=== PATIENT | female | born 1995 | race Hispanic/Latino ===

== ENCOUNTER → 2020-07-03 | Emergency (ER) | payer MEDICAID ==
[~2020-07-03] MED LIST: CEFTRIAXONE SODIUM 1 GM ONE; ONDANSETRON HCL 4 MG/2 ML VIAL ONE; SODIUM CHLORIDE 0.9% 1000ML 1,000 ML IV ONE
[2020-07-03 19:42] LABS: APPEARANCE,URINE CLOUDY (CLEAR); BILIRUBIN,URINE NEGATIVE (NEGATIVE); COLOR,URINE YELLOW (YELLOW); GLUCOSE, URINE (UA) NEGATIVE (NEGATIVE); KETONES,URINE NEGATIVE (NEGATIVE); LEUKOCYTE ESTERASE ,URINE NEGATIVE (NEGATIVE); NITRATE,URINE NEGATIVE (NEGATIVE); OCCULT BLOOD,URINE TRACE-LYSED (NEGATIVE); PH,URINE 8.5 (5.0-8.0); PROTEIN,URINE NEGATIVE (NEGATIVE); UROBILINOGEN,URINE 0.2 mg/dL (0.2-1.0)
[2020-07-03 19:48] LABS: AMORPHOUS SEDIMENT,UR Moderate /LPF (None Seen); BACTERIA,URINE Few /HPF (None Seen); SQUAMOUS EPITHELIAL CELL,UR Few /HPF (0-2); WBC,URINE 0-1 /HPF (0-1)
[2020-07-03 19:52] LABS: HCG,QUAL RESULT POSITIVE (NEGATIVE)
[2020-07-03 20:31] LABS: BASOPHILS % (AUTO) 0.4 % (0.0-5.0); EOSINOPHILS % (AUTO) 0.4 % (0.0-8.0); HEMATOCRIT 37.8 % (36-48); LYMPHOCYTES % (AUTO) 13.9 % (21.0-51.0); MEAN CORPUSCULAR HEMOGLOBIN 30.4 pg (27.0-33.0); MEAN CORPUSCULAR HGB CONC 34.7 g/dL (32.0-36.0); MEAN CORPUSCULAR VOLUME 87.7 fL (79-99); MONOCYTES % (AUTO) 6.3 % (3.0-13.0); NEUTROPHILS % (AUTO) 78.8 % (40.0-77.0); PLATELET COUNT (AUTO) 217 K/uL (130-400); RED BLOOD CELL COUNT(AUTO) 4.31 MIL/uL (4.00-5.50); RED CELL DISTRIBUTION WIDTH 11.9 % (11.0-15.5); WHITE BLOOD COUNT (AUTO) 13.3 K/uL (4.8-10.8)
[2020-07-03 20:41] LABS: CREATININE 0.6 mg/dL (0.5-1.5); POTASSIUM 3.4 mmol/L (3.5-5.1)
[2020-07-03 21:07] LABS: BILIRUBIN,TOTAL 0.3 mg/dL (0.2-1.0); TOTAL PROTEIN, SERUM 7.7 g/dL (6.0-8.3)
== END ==
LOC: EDH 19:21
DX: O23.11 Infections of bladder in pregnancy, first trimester (principal); Z3A.01 Less than 8 weeks gestation of pregnancy
CPT/HCPCS: 36415; 76801; 80053; 81001; 81025; 83690; 84702; 85025; 86900; 86901; 96361; 96365; 96375; 99284; J0696; J2405; J7030

== ENCOUNTER 2021-01-28 20:13 | Observation (INO) | payer MEDICAID ==
[~2021-01-28] VITALS: Ht 162.6 cm; Wt 74.8 kg
[2021-01-28 20:14] VITALS: BP 106/69
[2021-01-28 20:28] VITALS: BP 106/69
[2021-01-28 20:47] LABS: APPEARANCE,URINE Clear (CLEAR); BILIRUBIN,URINE Negative (NEGATIVE); COLOR,URINE Yellow (YELLOW); GLUCOSE, URINE (UA) Negative (NEGATIVE); KETONES,URINE Negative (NEGATIVE); LEUKOCYTE ESTERASE ,URINE Small (NEGATIVE); NITRATE,URINE Negative (NEGATIVE); OCCULT BLOOD,URINE Negative (NEGATIVE); PH,URINE 6.5 (5.0-8.0); PROTEIN,URINE Negative (NEGATIVE)
[2021-01-28 20:58] LABS: BACTERIA,URINE Rare /HPF (None Seen); RBC,URINE None Seen /HPF (0-1); SQUAMOUS EPITHELIAL CELL,UR 0-2 /HPF (0-2); WBC,URINE 0-1 /HPF (0-1)
== END 2021-01-28 21:35 | disposition home or self-care (01) ==
LOC: EDH 20:13 → LDH 20:33
PROVIDERS: ADMIT Specialist; ATTEND Specialist
DX: O62.9 Abnormality of forces of labor, unspecified (principal); O26.893 Other specified pregnancy related conditions, third trimester; R51.9 Headache, unspecified; Z3A.37 37 weeks gestation of pregnancy
CPT/HCPCS: 59025; 81001; G0378; G0379

== ENCOUNTER 2021-02-01 11:21 | Inpatient (IN) | payer MEDICAID ==
[~2021-02-01] VITALS: Ht 162.6 cm; Wt 75.3 kg
[2021-02-01 11:22] VITALS: BP 122/63
[2021-02-01 11:55] LABS: APPEARANCE,URINE CLEAR (CLEAR); BILIRUBIN,URINE NEGATIVE (NEGATIVE); COLOR,URINE YELLOW (YELLOW); GLUCOSE, URINE (UA) NEGATIVE (NEGATIVE); KETONES,URINE NEGATIVE (NEGATIVE); LEUKOCYTE ESTERASE ,URINE TRACE (NEGATIVE); NITRATE,URINE NEGATIVE (NEGATIVE); OCCULT BLOOD,URINE NEGATIVE (NEGATIVE); PH,URINE 7.5 (5.0-8.0); PROTEIN,URINE NEGATIVE (NEGATIVE); UROBILINOGEN,URINE 0.2 mg/dL (0.2-1.0)
[2021-02-01] MEDS ORDERED: NALOXONE HCL 0.4 MG/1 ML ML IV PRN (12:00)
[2021-02-01] MEDS ORDERED: ROPIVACAINE 0.2% 100ML VIAL 100 ML EP SCH (12:00)
[2021-02-01] MEDS ORDERED: LACTATED RINGERS 1000ML 1,000 ML IV PRN (12:00)
[2021-02-01] MEDS ORDERED: LACTATED RINGERS 500 ML 500 ML IV PRN (12:00)
[2021-02-01] MEDS ORDERED: MEPERIDINE-PF 50 MG/ML SYG IVP PRN ×2 (12:00→17:00)
[2021-02-01] MEDS ORDERED: EPHEDRINE SULFATE 50 MG/ML AMPULE IVP PRN (12:00)
[2021-02-01] MEDS ORDERED: AMPICILLIN 2GM+NS 100ML 100 ML IV SCH (12:00)
[2021-02-01] MEDS ORDERED: OXYTOCIN-LR 20 UNITS/1000 ML 1,000 ML IV SCH ×2 (12:00)
[2021-02-01] MEDS ORDERED: PROMETHAZINE HCL 25 MG/ML 1ML AMPULE IM PRN (12:00)
[2021-02-01 12:03] VITALS: BP 114/69
[2021-02-01 12:18] LABS: HEMATOCRIT 31.3 % (36-48); MEAN CORPUSCULAR HEMOGLOBIN 28.2 pg (27.0-33.0); MEAN CORPUSCULAR HGB CONC 32.6 g/dL (32.0-36.0); MEAN CORPUSCULAR VOLUME 86.5 fL (79-99); RED BLOOD CELL COUNT(AUTO) 3.62 MIL/uL (4.00-5.50); WHITE BLOOD COUNT (AUTO) 7.5 K/uL (4.8-10.8)
[2021-02-01 12:52] LABS: BACTERIA,URINE None Seen /HPF (None Seen); RBC,URINE 0-1 /HPF (0-1); SQUAMOUS EPITHELIAL CELL,UR 0-2 /HPF (0-2); WBC,URINE 0-1 /HPF (0-1)
[2021-02-01] MEDS ORDERED: AMPICILLIN 1GM+NS 50ML 50 ML IV SCH (16:00)
[2021-02-01] MEDS ORDERED: METHYLERGONOVINE MALEATE 0.2 MG/1 ML ML ONE (17:27)
[2021-02-01] MEDS ORDERED: LIDOCAINE HCL 1% 20 ML VIAL ONE (17:27)
[2021-02-01] MEDS ORDERED: MISOPROSTOL 200 MCG TABLET ONE (18:30)
[2021-02-01] MEDS ORDERED: MEASLES/MUMPS/RUBELLA VACCINE, LIVE 0.5 ML/VIAL SQ PRN (19:00)
[2021-02-01] MEDS ORDERED: ACETAMINOPHEN WITH CODEINE 1 TAB TAB PO PRN (19:00)
[2021-02-01] MEDS ORDERED: MISOPROSTOL 200 MCG TABLET VG SCH (19:00)
[2021-02-01] MEDS ORDERED: ACETAMINOPHEN 325 MG TAB PO PRN (19:00)
[2021-02-01] MEDS ORDERED: DIPH,PERTUSS(ACELL),TET VAC/PF 0.5 ML VIAL IM PRN (19:00)
[2021-02-01] MEDS ORDERED: METHYLERGONOVINE MALEATE 0.2 MG/1 ML ML IM SCH (19:00)
[2021-02-01] MEDS ORDERED: BENZOCAINE/LANOLIN/ALOE VERA 60 ML AEROSOL TP PRN (19:00)
[2021-02-01] MEDS ORDERED: LANOLIN 30GM OINTMENT TP PRN (19:00)
[2021-02-01] MEDS ORDERED: WITCH HAZEL 1 PAD TP PRN (19:00)
[2021-02-01] MEDS: IBUPROFEN 600 MG TABLET PO PRN (19:53)
[2021-02-01 20:43] VITALS: BP 129/67
[2021-02-01] MEDS: DOCUSATE SODIUM 100 MG CAP PO SCH (21:12)
[2021-02-01 23:20] VITALS: BP 106/63
[2021-02-02 03:00] VITALS: BP 106/58
[2021-02-02 06:41] LABS: HEMATOCRIT 28.3 % (36-48); MEAN CORPUSCULAR HGB CONC 33.2 g/dL (32.0-36.0); MEAN CORPUSCULAR VOLUME 84.2 fL (79-99); RED BLOOD CELL COUNT(AUTO) 3.36 MIL/uL (4.00-5.50); RED CELL DISTRIBUTION WIDTH 12.9 % (11.0-15.5); WHITE BLOOD COUNT (AUTO) 14.9 K/uL (4.8-10.8)
[2021-02-02 07:50] VITALS: BP 95/56
[2021-02-02 08:40] LABS: RAPID PLASMA REAGIN NONREACTIVE (NONREACTIVE)
[2021-02-02] MEDS: DOCUSATE SODIUM 100 MG CAP PO SCH ×2 (08:45→21:39)
[2021-02-02] MEDS: IBUPROFEN 600 MG TABLET PO PRN ×2 (08:45→22:06)
[2021-02-02 12:15] VITALS: BP 104/62
[2021-02-02 16:10] VITALS: BP 99/58
[2021-02-02 19:45] VITALS: BP 109/58
[2021-02-03 00:17] VITALS: BP 114/57
[2021-02-03 04:09] LABS: HEPATITIS Bs ANTIGEN SCREEN P Negative (Negative)
[2021-02-03 04:40] VITALS: BP 113/67
[2021-02-03 09:00] VITALS: BP 130/77
[2021-02-03] MEDS: IBUPROFEN 600 MG TABLET PO PRN (09:45)
[2021-02-03] MEDS: DOCUSATE SODIUM 100 MG CAP PO SCH (09:45)
== END 2021-02-03 10:00 | disposition home or self-care (01) | DRG 560 ==
LOC: EDH 11:21 → OBSVTOIN 11:34 → LDH 11:34 → WSH 20:32
PROVIDERS: ADMIT Specialist; ATTEND Specialist
PROC: 10E0XZZ Delivery of Products of Conception, External Approach (ICD-10-PCS; principal; 2021-02-01)
PROC: 10907ZC Drainage of Amniotic Fluid, Therapeutic from Products of Conception, Via Natural or Artificial Opening (ICD-10-PCS; 2021-02-01)
PROC: 0UQMXZZ Repair Vulva, External Approach (ICD-10-PCS; 2021-02-01)
PROC: 0HQ9XZZ Repair Perineum Skin, External Approach (ICD-10-PCS; 2021-02-01)
DX: O99.824 Streptococcus B carrier state complicating childbirth (principal); O69.81X0 Labor and delivery complicated by cord around neck, without compression, not applicable or unspecified; O70.0 First degree perineal laceration during delivery; O71.82 Other specified trauma to perineum and vulva; Z37.0 Single live birth; Z3A.37 37 weeks gestation of pregnancy
CPT/HCPCS: 36415; 81001; 85027; 86592; 86701; 86850; 86900; 86901; 87340; 87390; A4351; G0378; J0290; J2175; J2210; J2550; J2590; J7120